=== PATIENT | male | born 1960 ===

== ENCOUNTER 2020-07-10 05:10 | Emergency (ER) | payer MEDICAID ==
[~2020-07-10] VITALS: Ht 175.3 cm; Wt 63.8 kg
--- NOTE | 2020-07-10 05:21 | NUR ---
PT C/O RIGHT KNEE PAIN. PT STATES HE HAS CHRONIC PAIN IN HIS KNEES AND ANKLES BUT THE PAIN IS BAD TODAY, 09/10. PT ALSO STATES HE HAS LOST HIS BALANCE WITH THE PAIN BUT DENIES ANY INJURIES. PT +ETOH AND STATES HE DRANK ALCOHOL TODAY, BUT NOT MUCH HE NORMALLY DOES. +CMS TO EXT. PT REFUSING TO WEAR [facility].
[2020-07-10] MEDS ORDERED: ACETAMINOPHEN 500 MG TABLET ONE (05:46)
--- NOTE | 2020-07-10 05:56 | NUR ---
PT REFUSING LABS AND MEDICATIONS. PT SAYS HE JUST WANTED THE DR TO CHECK HIS VITAL SIGNS AND HE WANTS TO GO.
[2020-07-10 05:57] VITALS: BP 144/71
[2020-07-10] MEDS ORDERED: ACETAMINOPHEN 500 MG TABLET PO ONE (06:00)
--- NOTE | 2020-07-10 06:05 | NUR ---
PT REC'VD DISCHARGE INSTRUCTIONS AND EDUCATION. PT HAD NO FURTHER QUESTIONS. PT PROVIDED TAXI VOUCHER. PT IN WHEELCHAIR TO ME AREA.
== END 2020-07-10 06:41 | disposition home or self-care (01) ==
LOC: ED 06:00
DX: M25.562 Pain in left knee (principal); M25.561 Pain in right knee; F10.20 Alcohol dependence, uncomplicated; Z72.9 Problem related to lifestyle, unspecified; F17.200 Nicotine dependence, unspecified, uncomplicated; Y90.0 Blood alcohol level of less than 20 mg/100 ml
CPT/HCPCS: 99283

== ENCOUNTER 2020-07-11 10:14 | Emergency (ER) | payer MEDICAID ==
[~2020-07-11] VITALS: Ht 175.3 cm; Wt 63.8 kg
[2020-07-11 10:17] VITALS: BP 130/58
--- NOTE | 2020-07-11 10:22 | NUR ---
THIS IS A 59 YO M BIB EMS FOR NECK PAIN R/T INJ X7 DAYS. PT WAS SEEN IN THIS ED YESERDAY AND WAS NON COMPLIANT W/ POC. PT REPORTS 7 DRINKS TODAY. PT TACHYCARDIC, OTHER VS WDL. RESP EVEN AND UNLABORED, NADN.
--- NOTE | 2020-07-11 10:45 | NUR ---
EMMA MCLEAN AT BEDSIDE.
--- NOTE | 2020-07-11 11:04 | NUR ---
PT VERBALLY AGGRESSIVE, STATING "FUCK YOU BITCH, PUT MY SHIRT ON? TAKE YOUR SHIRT OFF!" SECURITY CALLED TO ASSIST IN DC. WHILE PT WAS CHANGING, LIT CIGGARETTE AND STARTED SMOKING IN ROOM. PT CONTINUED CURSING AT THIS RN. SECURITY AT BEDSIDE.
--- NOTE | 2020-07-11 11:08 | NUR ---
PT AMBULATORY W/ A STEADY GAIT, SLAMMING DOOR BEHIND HIM. ESCORTED OUT BY SECURITY. RESP EVEN AND UNLABORED,
== END 2020-07-11 11:10 | disposition home or self-care (01) ==
LOC: ED 11:05
DX: M54.2 Cervicalgia (principal); R21 Rash and other nonspecific skin eruption; B86 Scabies; Z59.0 Homelessness
CPT/HCPCS: 99283

== ENCOUNTER 2020-07-13 16:01 | Emergency (ER) | payer MEDICAID ==
[~2020-07-13] VITALS: Ht 172.7 cm; Wt 70.0 kg
--- NOTE | 2020-07-13 16:30 | NUR ---
This pt was BIB [facility] as they are unable to take the pt directly to a mental health facility, where he was hoping to go as he has a hx of depession and has been out of his meds. Pt has no thougths of SI. Pt states "that's what they say" when asked about his ETOH and if he's going through withdrawls.
--- NOTE | 2020-07-13 16:42 | NUR ---
Pt to decon now.
[2020-07-13] MEDS ORDERED: PIPERONYL BUTOXIDE/PYRETHRINS 4OZ. SHAMPOO ONE (16:45)
[2020-07-13] MEDS ORDERED: PIPERONYL BUTOXIDE/PYRETHRINS 4OZ. SHAMPOO TP SCH (16:45)
[2020-07-13 17:33] LABS: BASOPHILS % (AUTO) 1 % (0-1); EOSINOPHILS % (AUTO) 4 % (1-7); LYMPHOCYTES % (AUTO) 17 % (22-44); MEAN CORPUSCULAR HEMOGLOBIN 32.7 pg (27.5-34.5); MEAN CORPUSCULAR HGB CONC 33.7 g/dL (33.2-36.2); MEAN PLATELET VOLUME 7.4 fL (7.4-10.4); MONOCYTES % (AUTO) 16 % (2-9); NEUTROPHILS % (AUTO) 63 % (42-75); PLATELET COUNT 152 x10^3/uL (130-400); RED BLOOD COUNT 3.72 x10^6/uL (4.38-5.82); RED CELL DISTRIBUTION WIDTH 14.4 % (9.4-14.8)
[2020-07-13 17:34] LABS: MD NO
[2020-07-13 17:35] LABS: ALBUMIN 3.2 g/dL (3.4-5.0); ANION GAP 8 mmol/L (5-15); CALCIUM 8.4 mg/dL (8.5-10.1); CHLORIDE 102 mmol/L (98-107); CREATININE 1.04 mg/dL (0.7-1.3)
--- NOTE | 2020-07-13 17:56 | NUR ---
Pt refused tib/fib xray, states "it's my neck that hurts."
--- NOTE | 2020-07-13 18:19 | NUR ---
US to bedside. Pt refusing imaging. This RN to bedside to assess situation. Pt out of bed, yelling at this RN. "You could've let my go through my sutff in the other room. You want me to leave, don't you? Could've fuckinf told you that. Why don't you just give me a bottle of my prescription and I'll just go." Pt provided with new clothes "why don't you get me something fucking warm?" Pt provided with sandwhich.
--- NOTE | 2020-07-13 18:34 | NUR ---
Pt ate half the stevenwhjuani. "Give this other half to your grandma because I bet she'd appreciate it but I don't." Pt threw nusrat across the room. Provided with bus pass and address [facility]. Security called to escort out. Pt refused to sign AMA form.
[2020-07-13 18:42] VITALS: BP 131/65
== END 2020-07-13 18:45 | disposition left against medical advice (07) ==
LOC: ED 18:30
DX: F10.220 Alcohol dependence with intoxication, uncomplicated (principal); B85.0 Pediculosis due to Pediculus humanus capitis; F17.210 Nicotine dependence, cigarettes, uncomplicated; Y90.0 Blood alcohol level of less than 20 mg/100 ml; Z59.0 Homelessness
CPT/HCPCS: 36415; 80048; 82040; 85025; 99283; 99406

== ENCOUNTER 2020-07-18 11:00 | Inpatient (IN) | payer MEDICAID ==
[~2020-07-18] VITALS: Ht 175.3 cm; Wt 81.1 kg
[2020-07-18] MEDS ORDERED: ACETAMINOPHEN 500 MG TABLET ONE (11:14)
--- NOTE | 2020-07-18 11:20 | NUR ---
PT BIBA. PER EMS PT HAS LEG/NECK/ BACK PAIN. PT DENIES ANY TRAUMA. PER EMS PT ALSO WAS SEEN AT [facility] TODAY FOR SAME. PT HAS EDEMA AND ERYTHEMA ON BILAT LOWER EXTREMITIES. PT IS A POOR HISTORIAN AND REPORTS NO MEDICAL HX. PT STATES HIS PAIN IS 8/10 TO HIS LEGS, BACK, AND NECK. PT WARM TO THE TOUCH, RECTAL TEMPERATURE 104.9F. PT IS A&OX3. PT RESTING IN [place], MONITORING IN PLACE, EKG DONE, PT MEDICATED PER BENJAMIN EDWARDS AT THIS TIME, DR. ALEXANDER AT BEDSIDE FOR EVAL, WCTM.
[2020-07-18] MEDS ORDERED: ACETAMINOPHEN 500 MG TABLET PO ONE (11:30)
[2020-07-18] MEDS ORDERED: SODIUM CHLORIDE FLUSH 10ML SYR IVF ONE (11:30)
[2020-07-18] MEDS ORDERED: SODIUM CHLORIDE 0.9% 1,000ML IVBOLUS ONE (11:30)
[2020-07-18 12:02] LABS: MEAN CORPUSCULAR HEMOGLOBIN 31.8 pg (27.5-34.5); MEAN CORPUSCULAR HGB CONC 33.2 g/dL (33.2-36.2); MEAN PLATELET VOLUME 7.9 fL (7.4-10.4); PLATELET COUNT 92 x10^3/uL (130-400); RED BLOOD COUNT 3.89 x10^6/uL (4.38-5.82); RED CELL DISTRIBUTION WIDTH 14.6 % (9.4-14.8)
[2020-07-18 12:08] LABS: INTERNATIONAL NORMALIZED RATIO 1.56 (0.93-1.1); PROTHROMBIN TIME 16.5 Seconds (9.6-11.5)
[2020-07-18 12:09] LABS: ALANINE AMINOTRANSFERASE 64 U/L (12-78); ALBUMIN 2.5 g/dL (3.4-5.0); ANION GAP 7 mmol/L (5-15); CALCIUM 7.8 mg/dL (8.5-10.1); CHLORIDE 103 mmol/L (98-107)
[2020-07-18 12:12] LABS: ALKALINE PHOSPHATASE 89 U/L (45-117); BILIRUBIN,TOTAL 1.6 mg/dL (0.2-1.0); CREATINE KINASE, TOTAL 179 U/L (39-308); CREATININE 1.19 mg/dL (0.7-1.3); TOTAL PROTEIN 6.5 g/dL (6.4-8.2)
[2020-07-18 12:24] LABS: MD YES
[2020-07-18 12:26] LABS: <PLATELET ESTIMATE> DECREASED; <PLT MORPHOLOGY> NORMAL PLT MORPH; BAND#(MANUAL) 1.98 x10^3/uL; BANDS%(MANUAL) 25 % (0-7); LYMPH#(MANUAL) 0.08 x10^3/uL (1-3.4); LYMPHS% (MANUAL) 1 % (22-44); MONOS#(MANUAL) 0.47 x10^3/uL (0.3-2.7); MONOS% (MANUAL) 6 % (2-9); SEG#(MANUAL) 5.37 x10^3/uL (1.8-6.8); SEGS% (MANUAL) 68 % (42-75)
[2020-07-18 12:27] LABS: POLYCHROMASIA 1+
[2020-07-18] MEDS ORDERED: CEFTRIAXONE 1,000 MG in DEXTROSE 5% 50 ML IVPB ONE (13:00)
[2020-07-18 13:02] LABS: MICROSCOPIC NOT IND
[2020-07-18 14:57] LABS: RAPID INFLUENZA A Negative (Negative); RAPID INFLUENZA B Negative (Negative)
--- NOTE | 2020-07-18 15:21 | NUR ---
task rn. us at bedside
[2020-07-18] MEDS ORDERED: ONDANSETRON 2MG/ML, 2ML IVPush PRN (16:00)
[2020-07-18] MEDS ORDERED: CHLORDIAZEPOXIDE 10 MG CAPSULE PO PRN (16:00)
[2020-07-18] MEDS ORDERED: ONDANSETRON ODT 4 MG PO PRN (16:00)
[2020-07-18] MEDS ORDERED: ENOXAPARIN 40 MG/0.4 ML SQ SCH (16:00)
[2020-07-18] MEDS ORDERED: CHLORDIAZEPOXIDE 25 MG CAPSULE PO PRN ×2 (16:00)
[2020-07-18] MEDS ORDERED: ENALAPRILAT 1.25 MG/ML, 2ML IVPush PRN (16:00)
[2020-07-18] MEDS ORDERED: LORazepam 2 MG/ML, 1ML IV PRN (16:00)
[2020-07-18 17:39] VITALS: BP 109/72
[2020-07-18 17:47] VITALS: BP 109/72
[2020-07-18] MEDS ORDERED: BUTALB/APAP/CAFFEINE 50MG/325MG/40MG PO PRN (18:00)
[2020-07-18] MEDS: D5%-0.45NACL+KCL 20MEQ 1,000 ML IV SCH (18:44)
[2020-07-18] MEDS: CHLORDIAZEPOXIDE 25 MG CAPSULE PO PRN (19:52)
[2020-07-18 20:48] VITALS: BP 99/57
[2020-07-18] MEDS: AMPICILLIN/SULBACTAM 3 GM in SODIUM CHLORIDE 0.9% 100 ML IV SCH (21:24)
[2020-07-18] MEDS: MELATONIN 5 MG TABLET PO SCH (23:00)
[2020-07-18] MEDS: ACETAMINOPHEN 325 MG TABLET PO PRN (23:56)
[2020-07-19] MEDS ORDERED: MAGNESIUM SULFATE PMX 2GM/50ML 50 ML IV ONE
[2020-07-19 00:04] VITALS: BP 99/58
[2020-07-19 02:59] VITALS: BP 94/58
[2020-07-19 03:18] LABS: BASOPHILS % (AUTO) 1 % (0-1); EOSINOPHILS % (AUTO) 0 % (1-7); LYMPHOCYTES % (AUTO) 6 % (22-44); MEAN CORPUSCULAR HEMOGLOBIN 31.8 pg (27.5-34.5); MEAN PLATELET VOLUME 7.9 fL (7.4-10.4); MONOCYTES % (AUTO) 5 % (2-9); NEUTROPHILS % (AUTO) 89 % (42-75); PLATELET COUNT 92 x10^3/uL (130-400); RED BLOOD COUNT 3.54 x10^6/uL (4.38-5.82)
[2020-07-19 03:19] LABS: MD NO
[2020-07-19 03:31] LABS: ALANINE AMINOTRANSFERASE 58 U/L (12-78); ANION GAP 7 mmol/L (5-15); CALCIUM 7.2 mg/dL (8.5-10.1); CHLORIDE 104 mmol/L (98-107); CREATININE 0.91 mg/dL (0.7-1.3)
[2020-07-19 03:33] LABS: ALKALINE PHOSPHATASE 70 U/L (45-117); BILIRUBIN,TOTAL 1.1 mg/dL (0.2-1.0); TOTAL PROTEIN 5.3 g/dL (6.4-8.2)
[2020-07-19] MEDS ORDERED: PROMETHAZINE 25 MG/ML, 1ML IM ONE (04:00)
[2020-07-19] MEDS: PANTOPRAZOLE 40 MG IV IVPush SCH ×2 (04:13→16:39)
[2020-07-19 04:21] VITALS: BP 95/57
[2020-07-19] MEDS: CHLORDIAZEPOXIDE 25 MG CAPSULE PO PRN ×2 (05:43→08:14)
[2020-07-19] MEDS: AMPICILLIN/SULBACTAM 3 GM in SODIUM CHLORIDE 0.9% 100 ML IV SCH ×3 (05:43→21:00)
[2020-07-19 06:53] VITALS: BP 90/53
[2020-07-19] MEDS ORDERED: CYANOCOBALAMIN 1,000 MCG/ML, 1ML IM ONE (09:00)
[2020-07-19] MEDS: CALCIUM CARBONATE 500 MG TAB.CHEW PO SCH ×2 (09:00→21:00)
[2020-07-19] MEDS ORDERED: POTASSIUM PHOSPHATE 44 MEQ in SODIUM CHLORIDE 0.9% 500 ML IV ONE (09:00)
[2020-07-19] MEDS: SENNA/DOCUSATE TABLET PO SCH (09:00)
[2020-07-19] MEDS: ZINC SULFATE 220 MG CAPSULE PO SCH (09:59)
[2020-07-19] MEDS: MULTIVITS,STRESS FORMULA 1 TABLET PO SCH (09:59)
[2020-07-19] MEDS: CHOLECALCIFEROL 5,000u TAB PO SCH (10:00)
[2020-07-19] MEDS: OXYcodone/APAP 5/325MG TABLET PO PRN ×2 (10:00→16:39)
[2020-07-19 11:53] VITALS: BP 99/60
[2020-07-19] MEDS ORDERED: OCTREOTIDE 50 MCG/ML, 1ML (0.05MG/ML) IVPush ONE ×2 (12:30→15:30)
[2020-07-19 12:49] LABS: MEAN CORPUSCULAR HEMOGLOBIN 32.3 pg (27.5-34.5); MEAN CORPUSCULAR HGB CONC 33.2 g/dL (33.2-36.2); MEAN PLATELET VOLUME 7.9 fL (7.4-10.4); PLATELET COUNT 93 x10^3/uL (130-400); RED BLOOD COUNT 3.53 x10^6/uL (4.38-5.82); RED CELL DISTRIBUTION WIDTH 14.6 % (9.4-14.8)
[2020-07-19 13:24] LABS: MD YES
[2020-07-19 13:26] LABS: LYMPH#(MANUAL) 0.35 x10^3/uL (1-3.4); LYMPHS% (MANUAL) 5 % (22-44); MONOS#(MANUAL) 0.14 x10^3/uL (0.3-2.7); MONOS% (MANUAL) 2 % (2-9)
[2020-07-19 13:28] LABS: <PLATELET ESTIMATE> DECREASED; <PLT MORPHOLOGY> NORMAL PLT MORPH; <RBC MORPHOLOGY> NORMAL; PMNS WITH VACUOLES 1+
[2020-07-19 13:29] LABS: BAND#(MANUAL) 0.98 x10^3/uL; BANDS%(MANUAL) 14 % (0-7); SEG#(MANUAL) 5.53 x10^3/uL (1.8-6.8); SEGS% (MANUAL) 79 % (42-75)
[2020-07-19] MEDS ORDERED: SODIUM CHLORIDE 0.9% 1,000ML IV ONE (14:00)
[2020-07-19] MEDS ORDERED: NICOTINE 14MG/24 HR PATCH.TD24 TD ONE (14:00)
[2020-07-19] MEDS ORDERED: OCTREOTIDE 100MCG/ML, 1ML (0.1MG/ML) IVPush ONE (15:30)
[2020-07-19] MEDS: OCTREOTIDE 500 MCG in SODIUM CHLORIDE 0.9% 99 ML IV PRN ×2 (15:38→23:53)
[2020-07-19] MEDS: D5%-0.45NACL+KCL 20MEQ 1,000 ML IV SCH (15:53)
[2020-07-19] MEDS: ASCORBIC ACID 500 MG TABLET PO SCH (16:39)
[2020-07-19 18:15] LABS: MEAN CORPUSCULAR HEMOGLOBIN 32.1 pg (27.5-34.5); MEAN CORPUSCULAR HGB CONC 32.8 g/dL (33.2-36.2); MEAN PLATELET VOLUME 8.1 fL (7.4-10.4); PLATELET COUNT 81 x10^3/uL (130-400); RED BLOOD COUNT 3.34 x10^6/uL (4.38-5.82)
[2020-07-19 18:16] LABS: MD YES
[2020-07-19 18:43] LABS: BAND#(MANUAL) 0.86 x10^3/uL; BANDS%(MANUAL) 13 % (0-7); LYMPH#(MANUAL) 0.53 x10^3/uL (1-3.4); LYMPHS% (MANUAL) 8 % (22-44); MONOS#(MANUAL) 0.26 x10^3/uL (0.3-2.7); MONOS% (MANUAL) 4 % (2-9); REACTIVE LYMPHS # (MANUAL) 0.07 x10^3/uL (0-0); REACTIVE LYMPHS % (MANUAL) 1 % (0-0); SEG#(MANUAL) 4.88 x10^3/uL (1.8-6.8); SEGS% (MANUAL) 74 % (42-75)
[2020-07-19 18:45] LABS: <PLATELET ESTIMATE> DECREASED; <PLT MORPHOLOGY> NORMAL PLT MORPH; ANISOCYTOSIS 1+; PMNS WITH VACUOLES 1+; POLYCHROMASIA 1+
[2020-07-19 19:19] VITALS: BP 92/55
[2020-07-19] MEDS: ACETAMINOPHEN 325 MG TABLET PO PRN (20:56)
[2020-07-19] MEDS: MELATONIN 5 MG TABLET PO SCH (20:58)
[2020-07-19 21:46] LABS: BASOPHILS % (AUTO) 1 % (0-1); EOSINOPHILS % (AUTO) 1 % (1-7); LYMPHOCYTES % (AUTO) 7 % (22-44); MEAN CORPUSCULAR HEMOGLOBIN 32.2 pg (27.5-34.5); MEAN PLATELET VOLUME 7.9 fL (7.4-10.4); MONOCYTES % (AUTO) 7 % (2-9); NEUTROPHILS % (AUTO) 85 % (42-75); PLATELET COUNT 93 x10^3/uL (130-400); RED BLOOD COUNT 3.23 x10^6/uL (4.38-5.82); RED CELL DISTRIBUTION WIDTH 14.8 % (9.4-14.8)
[2020-07-19 21:47] LABS: MD NO
[2020-07-19] MEDS: GABAPENTIN 300 MG CAPSULE PO PRN (23:28)
[2020-07-20 00:02] VITALS: BP 98/53
[2020-07-20 04:28] LABS: MEAN CORPUSCULAR HEMOGLOBIN 32.1 pg (27.5-34.5); MEAN CORPUSCULAR HGB CONC 33.4 g/dL (33.2-36.2); PLATELET COUNT 89 x10^3/uL (130-400); RED BLOOD COUNT 3.31 x10^6/uL (4.38-5.82); RED CELL DISTRIBUTION WIDTH 14.9 % (9.4-14.8)
[2020-07-20 04:42] LABS: ALBUMIN 1.7 g/dL (3.4-5.0); ANION GAP 4 mmol/L (5-15); CHLORIDE 108 mmol/L (98-107)
[2020-07-20 04:43] LABS: CREATININE 0.85 mg/dL (0.7-1.3)
[2020-07-20] MEDS: PANTOPRAZOLE 40 MG IV IVPush SCH (04:49)
[2020-07-20] MEDS: AMPICILLIN/SULBACTAM 3 GM in SODIUM CHLORIDE 0.9% 100 ML IV SCH ×3 (04:52→21:06)
[2020-07-20] MEDS: OXYcodone/APAP 5/325MG TABLET PO PRN ×2 (05:04→16:14)
[2020-07-20 05:05] VITALS: BP 95/59
[2020-07-20 05:47] LABS: MD YES
[2020-07-20 05:49] LABS: <PLATELET ESTIMATE> DECREASED; <PLT MORPHOLOGY> NORMAL PLT MORPH; ANISOCYTOSIS 1+; BAND#(MANUAL) 0.18 x10^3/uL; BANDS%(MANUAL) 3 % (0-7); EOS#(MANUAL) 0.06 x10^3/uL (0.0-0.4); EOS% (MANUAL) 1 % (1-7); LYMPH#(MANUAL) 0.06 x10^3/uL (1-3.4); LYMPHS% (MANUAL) 1 % (22-44); METAMYELOCYTES# (MANUAL) 0.06 x10^3/uL (0-0); METAMYELOCYTES% (MANUAL) 1 % (0-1); MONOS#(MANUAL) 0.06 x10^3/uL (0.3-2.7); MONOS% (MANUAL) 1 % (2-9); PMNS WITH VACUOLES 1+; SEG#(MANUAL) 5.67 x10^3/uL (1.8-6.8); SEGS% (MANUAL) 93 % (42-75)
[2020-07-20 05:50] LABS: POLYCHROMASIA 1+
[2020-07-20] MEDS ORDERED: CHLORHEXIDINE 15 ML UDC ONE (08:17)
[2020-07-20] MEDS ORDERED: CHLORHEXIDINE 15 ML UDC PO ONE (08:30)
[2020-07-20] MEDS: SENNA/DOCUSATE TABLET PO SCH (09:00)
[2020-07-20] MEDS ORDERED: MIDAZOLAM 1 MG/ML, 2ML ONE (09:16)
[2020-07-20] MEDS ORDERED: PROPOFOL 10 MG/ML, 50ML ONE (09:17)
[2020-07-20] MEDS ORDERED: METOPROLOL 1 MG/ML, 5ML IV PRN (09:30)
[2020-07-20] MEDS ORDERED: EPHEDRINE 50 MG/ML, 1ML IVPush PRN (09:30)
[2020-07-20] MEDS ORDERED: PROMETHAZINE 25 MG/ML, 1ML IVPush PRN (09:30)
[2020-07-20] MEDS ORDERED: DIAZEPAM 5 MG/ML, 2ML IVPush PRN (09:30)
[2020-07-20] MEDS ORDERED: LABETALOL 5MG/ML, 20ML IV PRN (09:30)
[2020-07-20] MEDS ORDERED: ONDANSETRON 2MG/ML, 2ML IVPush PRN (09:30)
[2020-07-20] MEDS ORDERED: hydrALAzine 20 MG/ML, 1ML IV PRN (09:30)
[2020-07-20] MEDS ORDERED: LORazepam 2 MG/ML, 1ML IVPush PRN (09:30)
[2020-07-20] MEDS ORDERED: DIPHENHYDRAMINE 50 MG/ML, 1ML IVPush PRN (09:30)
[2020-07-20] MEDS ORDERED: METOCLOPRAMIDE 5 MG/ML, 2ML IVPush PRN (09:30)
[2020-07-20] MEDS ORDERED: HALOPERIDOL 5 MG/ML IV PRN (09:30)
[2020-07-20] MEDS ORDERED: FENTANYL PF 100 MCG/2ML IV PRN (09:30)
[2020-07-20] MEDS ORDERED: ACETAMINOPHEN 325 MG TABLET PO PRN (09:30)
[2020-07-20] MEDS ORDERED: FENTANYL PF 100 MCG/2ML ONE (09:56)
[2020-07-20] MEDS ORDERED: LABETALOL 5MG/ML, 20ML ONE (09:56)
[2020-07-20] MEDS ORDERED: POTASSIUM PHOSPHATE 44 MEQ in SODIUM CHLORIDE 0.9% 500 ML IV ONE (10:00)
[2020-07-20] MEDS: ZINC SULFATE 220 MG CAPSULE PO SCH (10:37)
[2020-07-20] MEDS: CALCIUM CARBONATE 500 MG TAB.CHEW PO SCH ×2 (10:37→21:07)
[2020-07-20] MEDS: ASCORBIC ACID 500 MG TABLET PO SCH ×2 (10:37→16:14)
[2020-07-20] MEDS: CHOLECALCIFEROL 5,000u TAB PO SCH (10:38)
[2020-07-20] MEDS: MULTIVITS,STRESS FORMULA 1 TABLET PO SCH (10:51)
[2020-07-20 12:17] LABS: BASOPHILS % (AUTO) 0 % (0-1); EOSINOPHILS % (AUTO) 1 % (1-7); LYMPHOCYTES % (AUTO) 6 % (22-44); MEAN CORPUSCULAR HEMOGLOBIN 32.1 pg (27.5-34.5); MEAN PLATELET VOLUME 8.2 fL (7.4-10.4); MONOCYTES % (AUTO) 7 % (2-9); NEUTROPHILS % (AUTO) 86 % (42-75); PLATELET COUNT 82 x10^3/uL (130-400); RED BLOOD COUNT 3.47 x10^6/uL (4.38-5.82); RED CELL DISTRIBUTION WIDTH 15.1 % (9.4-14.8)
[2020-07-20 12:18] LABS: MD NO
[2020-07-20 12:32] VITALS: BP 97/57
--- NOTE | 2020-07-20 15:48 | NUR ---
Posted activity sheet and informed staff and patient Addendum: 07/20/20 at 1548 by Chris Ag PT Amended: Links added.
[2020-07-20] MEDS: OMEPRAZOLE 20 MG CAPSULE.DR PO SCH (16:13)
[2020-07-20 18:13] LABS: BASOPHILS % (AUTO) 0 % (0-1); EOSINOPHILS % (AUTO) 1 % (1-7); LYMPHOCYTES % (AUTO) 9 % (22-44); MEAN CORPUSCULAR HEMOGLOBIN 32.2 pg (27.5-34.5); MEAN CORPUSCULAR HGB CONC 32.8 g/dL (33.2-36.2); MEAN PLATELET VOLUME 8.4 fL (7.4-10.4); MONOCYTES % (AUTO) 10 % (2-9); NEUTROPHILS % (AUTO) 80 % (42-75); PLATELET COUNT 86 x10^3/uL (130-400); RED BLOOD COUNT 3.61 x10^6/uL (4.38-5.82); RED CELL DISTRIBUTION WIDTH 15.3 % (9.4-14.8)
[2020-07-20 18:14] LABS: MD NO
[2020-07-20 19:49] VITALS: BP 98/63
[2020-07-20] MEDS: MELATONIN 5 MG TABLET PO SCH (21:07)
[2020-07-20 23:50] LABS: BASOPHILS % (AUTO) 0 % (0-1); EOSINOPHILS % (AUTO) 2 % (1-7); LYMPHOCYTES % (AUTO) 9 % (22-44); MEAN CORPUSCULAR HEMOGLOBIN 32.3 pg (27.5-34.5); MEAN CORPUSCULAR HGB CONC 32.9 g/dL (33.2-36.2); MEAN PLATELET VOLUME 8.3 fL (7.4-10.4); MONOCYTES % (AUTO) 9 % (2-9); NEUTROPHILS % (AUTO) 80 % (42-75); PLATELET COUNT 86 x10^3/uL (130-400); RED BLOOD COUNT 3.38 x10^6/uL (4.38-5.82); RED CELL DISTRIBUTION WIDTH 14.7 % (9.4-14.8)
[2020-07-20 23:59] LABS: MD NO
[2020-07-21 01:48] VITALS: BP 100/60
[2020-07-21] MEDS: GABAPENTIN 300 MG CAPSULE PO PRN (01:53)
[2020-07-21] MEDS: OXYcodone/APAP 5/325MG TABLET PO PRN ×2 (01:53→09:25)
[2020-07-21 04:41] LABS: BASOPHILS % (AUTO) 1 % (0-1); EOSINOPHILS % (AUTO) 2 % (1-7); LYMPHOCYTES % (AUTO) 9 % (22-44); MEAN CORPUSCULAR HEMOGLOBIN 32.2 pg (27.5-34.5); MEAN CORPUSCULAR HGB CONC 32.9 g/dL (33.2-36.2); MEAN PLATELET VOLUME 8.1 fL (7.4-10.4); MONOCYTES % (AUTO) 9 % (2-9); NEUTROPHILS % (AUTO) 80 % (42-75); PLATELET COUNT 80 x10^3/uL (130-400); RED BLOOD COUNT 3.25 x10^6/uL (4.38-5.82)
[2020-07-21 04:42] LABS: MD NO
[2020-07-21 04:53] LABS: ALBUMIN 1.6 g/dL (3.4-5.0); ANION GAP 6 mmol/L (5-15); CALCIUM 6.9 mg/dL (8.5-10.1); CHLORIDE 109 mmol/L (98-107)
[2020-07-21] MEDS: AMPICILLIN/SULBACTAM 3 GM in SODIUM CHLORIDE 0.9% 100 ML IV SCH ×3 (05:38→20:58)
[2020-07-21] MEDS: OMEPRAZOLE 20 MG CAPSULE.DR PO SCH ×2 (05:56→16:55)
[2020-07-21 07:55] VITALS: BP 103/59
[2020-07-21] MEDS: ASCORBIC ACID 500 MG TABLET PO SCH ×2 (08:22→16:55)
[2020-07-21] MEDS: CALCIUM CARBONATE 500 MG TAB.CHEW PO SCH ×2 (08:22→20:57)
[2020-07-21] MEDS: ZINC SULFATE 220 MG CAPSULE PO SCH (08:22)
[2020-07-21] MEDS: MULTIVITS,STRESS FORMULA 1 TABLET PO SCH (08:22)
[2020-07-21] MEDS: SENNA/DOCUSATE TABLET PO SCH (08:23)
[2020-07-21] MEDS: CHOLECALCIFEROL 5,000u TAB PO SCH (08:23)
[2020-07-21] MEDS ORDERED: CALCIUM GLUCONATE 4.6 MEQ/10 ML IVPush ONE (08:30)
[2020-07-21] MEDS ORDERED: SODIUM PHOSPHATE 20 MMOL in SODIUM CHLORIDE 0.9% 500 ML IV ONE (08:30)
[2020-07-21] MEDS ORDERED: CALCIUM GLUCONATE 4.6 MEQ in SODIUM CHLORIDE 0.9% 100 ML IV ONE (09:30)
[2020-07-21 12:07] VITALS: BP 110/65
[2020-07-21 12:46] LABS: MEAN CORPUSCULAR HEMOGLOBIN 32.2 pg (27.5-34.5); MEAN CORPUSCULAR HGB CONC 33.3 g/dL (33.2-36.2); MEAN PLATELET VOLUME 8.6 fL (7.4-10.4); PLATELET COUNT 96 x10^3/uL (130-400); RED BLOOD COUNT 3.71 x10^6/uL (4.38-5.82); RED CELL DISTRIBUTION WIDTH 14.9 % (9.4-14.8)
[2020-07-21] MEDS: ALBUMIN HUMAN 25% 100 ML IV SCH ×2 (13:54→20:15)
[2020-07-21 14:10] LABS: MD YES
[2020-07-21 14:19] LABS: BAND#(MANUAL) 0.37 x10^3/uL; BANDS%(MANUAL) 6 % (0-7); EOS#(MANUAL) 0.12 x10^3/uL (0.0-0.4); EOS% (MANUAL) 2 % (1-7); LYMPH#(MANUAL) 0.56 x10^3/uL (1-3.4); LYMPHS% (MANUAL) 9 % (22-44); MONOS#(MANUAL) 0.56 x10^3/uL (0.3-2.7); MONOS% (MANUAL) 9 % (2-9); SEG#(MANUAL) 4.59 x10^3/uL (1.8-6.8); SEGS% (MANUAL) 74 % (42-75)
[2020-07-21 14:23] LABS: ANISOCYTOSIS 1+; PMNS WITH VACUOLES 1+
[2020-07-21 14:24] LABS: <PLATELET ESTIMATE> DECREASED; <PLT MORPHOLOGY> NORMAL PLT MORPH; TOXIC GRAN 1+
[2020-07-21] MEDS ORDERED: FUROSEMIDE 20 MG/2 ML IV ONE (15:00)
[2020-07-21 16:52] VITALS: BP 103/69
[2020-07-21 18:06] LABS: BASOPHILS % (AUTO) 0 % (0-1); EOSINOPHILS % (AUTO) 1 % (1-7); LYMPHOCYTES % (AUTO) 10 % (22-44); MEAN CORPUSCULAR HEMOGLOBIN 32.1 pg (27.5-34.5); MEAN CORPUSCULAR HGB CONC 33.1 g/dL (33.2-36.2); MEAN PLATELET VOLUME 8.4 fL (7.4-10.4); MONOCYTES % (AUTO) 10 % (2-9); NEUTROPHILS % (AUTO) 78 % (42-75); PLATELET COUNT 76 x10^3/uL (130-400); RED BLOOD COUNT 3.47 x10^6/uL (4.38-5.82); RED CELL DISTRIBUTION WIDTH 15.1 % (9.4-14.8)
[2020-07-21 18:36] LABS: MD NO
[2020-07-21 19:03] VITALS: BP 100/60
[2020-07-21] MEDS: MELATONIN 5 MG TABLET PO SCH (20:58)
[2020-07-21 23:45] LABS: BASOPHILS % (AUTO) 0 % (0-1); EOSINOPHILS % (AUTO) 1 % (1-7); LYMPHOCYTES % (AUTO) 8 % (22-44); MEAN CORPUSCULAR HEMOGLOBIN 32.2 pg (27.5-34.5); MEAN CORPUSCULAR HGB CONC 33.3 g/dL (33.2-36.2); MEAN PLATELET VOLUME 8.5 fL (7.4-10.4); MONOCYTES % (AUTO) 11 % (2-9); NEUTROPHILS % (AUTO) 81 % (42-75); PLATELET COUNT 75 x10^3/uL (130-400); RED BLOOD COUNT 3.18 x10^6/uL (4.38-5.82); RED CELL DISTRIBUTION WIDTH 14.9 % (9.4-14.8)
[2020-07-22 00:03] LABS: MD NO
[2020-07-22 01:09] VITALS: BP 97/59
[2020-07-22] MEDS: ALBUMIN HUMAN 25% 100 ML IV SCH ×2 (01:58→08:06)
[2020-07-22] MEDS: AMPICILLIN/SULBACTAM 3 GM in SODIUM CHLORIDE 0.9% 100 ML IV SCH ×2 (04:38→13:07)
[2020-07-22] MEDS: OMEPRAZOLE 20 MG CAPSULE.DR PO SCH ×2 (05:20→16:37)
[2020-07-22] MEDS: OXYcodone/APAP 5/325MG TABLET PO PRN ×3 (05:21→21:18)
[2020-07-22 05:42] LABS: MEAN CORPUSCULAR HEMOGLOBIN 32.3 pg (27.5-34.5); MEAN CORPUSCULAR HGB CONC 33.4 g/dL (33.2-36.2); MEAN PLATELET VOLUME 9.2 fL (7.4-10.4); PLATELET COUNT 78 x10^3/uL (130-400); RED BLOOD COUNT 3.38 x10^6/uL (4.38-5.82); RED CELL DISTRIBUTION WIDTH 15.1 % (9.4-14.8)
[2020-07-22 05:54] LABS: CHLORIDE 108 mmol/L (98-107)
[2020-07-22 06:08] LABS: ANION GAP 9 mmol/L (5-15); CALCIUM 7.5 mg/dL (8.5-10.1); CREATININE 0.83 mg/dL (0.7-1.3); MD YES
[2020-07-22 06:10] LABS: <PLATELET ESTIMATE> DECREASED; <PLT MORPHOLOGY> NORMAL PLT MORPH; ANISOCYTOSIS 1+; EOS#(MANUAL) 0.05 x10^3/uL (0.0-0.4); EOS% (MANUAL) 1 % (1-7); LYMPH#(MANUAL) 0.72 x10^3/uL (1-3.4); LYMPHS% (MANUAL) 15 % (22-44); MONOS#(MANUAL) 0.38 x10^3/uL (0.3-2.7); MONOS% (MANUAL) 8 % (2-9); SEG#(MANUAL) 3.65 x10^3/uL (1.8-6.8); SEGS% (MANUAL) 76 % (42-75)
[2020-07-22 07:12] VITALS: BP 96/60
[2020-07-22] MEDS ORDERED: MAGNESIUM SULFATE PMX 4GM/100M 100 ML IVPB ONE (08:00)
[2020-07-22] MEDS: CHOLECALCIFEROL 5,000u TAB PO SCH (08:09)
[2020-07-22] MEDS: ZINC SULFATE 220 MG CAPSULE PO SCH (08:09)
[2020-07-22] MEDS: MULTIVITS,STRESS FORMULA 1 TABLET PO SCH (08:09)
[2020-07-22] MEDS: ASCORBIC ACID 500 MG TABLET PO SCH (08:09)
[2020-07-22] MEDS: CALCIUM CARBONATE 500 MG TAB.CHEW PO SCH ×2 (08:09→21:17)
[2020-07-22] MEDS: GABAPENTIN 300 MG CAPSULE PO PRN ×2 (08:15→21:18)
[2020-07-22] MEDS: ACETAMINOPHEN 325 MG TABLET PO PRN (08:15)
[2020-07-22] MEDS: SENNA/DOCUSATE TABLET PO SCH (08:18)
[2020-07-22 11:43] LABS: BASOPHILS % (AUTO) 1 % (0-1); EOSINOPHILS % (AUTO) 1 % (1-7); LYMPHOCYTES % (AUTO) 11 % (22-44); MEAN CORPUSCULAR HEMOGLOBIN 32.1 pg (27.5-34.5); MEAN CORPUSCULAR HGB CONC 33.4 g/dL (33.2-36.2); MEAN PLATELET VOLUME 8.4 fL (7.4-10.4); MONOCYTES % (AUTO) 12 % (2-9); NEUTROPHILS % (AUTO) 75 % (42-75); PLATELET COUNT 90 x10^3/uL (130-400); RED BLOOD COUNT 3.31 x10^6/uL (4.38-5.82); RED CELL DISTRIBUTION WIDTH 15.3 % (9.4-14.8)
[2020-07-22 11:44] LABS: MD NO
[2020-07-22 13:28] VITALS: BP 110/68
[2020-07-22] MEDS: AMOXICILLIN/CLAV 875-125MG TABLET PO SCH ×2 (14:25→21:17)
[2020-07-22] MEDS ORDERED: OXYcodone/APAP 5/325MG TABLET PO ONE (16:30)
[2020-07-22] MEDS: SUCRALFATE 1 GM TABLET PO SCH ×2 (16:37→21:17)
[2020-07-22 17:44] LABS: BASOPHILS % (AUTO) 1 % (0-1); EOSINOPHILS % (AUTO) 1 % (1-7); LYMPHOCYTES % (AUTO) 12 % (22-44); MD NO; MEAN CORPUSCULAR HEMOGLOBIN 31.8 pg (27.5-34.5); MEAN CORPUSCULAR HGB CONC 32.7 g/dL (33.2-36.2); MEAN PLATELET VOLUME 8.5 fL (7.4-10.4); MONOCYTES % (AUTO) 12 % (2-9); NEUTROPHILS % (AUTO) 74 % (42-75); PLATELET COUNT 98 x10^3/uL (130-400); RED BLOOD COUNT 3.61 x10^6/uL (4.38-5.82); RED CELL DISTRIBUTION WIDTH 15.1 % (9.4-14.8)
[2020-07-22 20:19] VITALS: BP 104/63
[2020-07-22 23:45] LABS: BASOPHILS % (AUTO) 0 % (0-1); EOSINOPHILS % (AUTO) 2 % (1-7); LYMPHOCYTES % (AUTO) 10 % (22-44); MD NO; MEAN CORPUSCULAR HEMOGLOBIN 31.7 pg (27.5-34.5); MEAN CORPUSCULAR HGB CONC 33.1 g/dL (33.2-36.2); MEAN PLATELET VOLUME 8.7 fL (7.4-10.4); MONOCYTES % (AUTO) 12 % (2-9); NEUTROPHILS % (AUTO) 76 % (42-75); PLATELET COUNT 101 x10^3/uL (130-400); RED BLOOD COUNT 3.32 x10^6/uL (4.38-5.82); RED CELL DISTRIBUTION WIDTH 15.1 % (9.4-14.8)
[2020-07-23 01:33] VITALS: BP 100/63
[2020-07-23] MEDS: OMEPRAZOLE 20 MG CAPSULE.DR PO SCH ×2 (06:09→18:08)
[2020-07-23 07:06] VITALS: BP 109/63
[2020-07-23] MEDS: SUCRALFATE 1 GM TABLET PO SCH ×4 (11:00→21:29)
[2020-07-23] MEDS: CALCIUM CARBONATE 500 MG TAB.CHEW PO SCH ×2 (11:26→21:29)
[2020-07-23] MEDS: AMOXICILLIN/CLAV 875-125MG TABLET PO SCH ×2 (11:27→21:29)
[2020-07-23] MEDS: SENNA/DOCUSATE TABLET PO SCH ×2 (11:27→11:37)
[2020-07-23] MEDS: MULTIVITS,STRESS FORMULA 1 TABLET PO SCH (11:27)
[2020-07-23] MEDS: OXYcodone/APAP 5/325MG TABLET PO PRN ×2 (11:28→21:29)
[2020-07-23 12:18] VITALS: BP 104/68
[2020-07-23 18:51] VITALS: BP 106/67
[2020-07-23] MEDS: GABAPENTIN 300 MG CAPSULE PO PRN (21:29)
[2020-07-24] MEDS: BACLOFEN 10 MG TABLET PO PRN ×3 (00:22→21:33)
[2020-07-24 00:42] VITALS: BP 110/70
[2020-07-24] MEDS: OMEPRAZOLE 20 MG CAPSULE.DR PO SCH ×2 (05:54→16:13)
[2020-07-24] MEDS: OXYcodone/APAP 5/325MG TABLET PO PRN ×3 (05:54→18:33)
[2020-07-24 07:59] VITALS: BP 108/68
[2020-07-24] MEDS: SUCRALFATE 1 GM TABLET PO SCH ×4 (09:25→21:33)
[2020-07-24] MEDS: MULTIVITS,STRESS FORMULA 1 TABLET PO SCH (09:25)
[2020-07-24] MEDS: CALCIUM CARBONATE 500 MG TAB.CHEW PO SCH ×2 (09:25→21:33)
[2020-07-24] MEDS: AMOXICILLIN/CLAV 875-125MG TABLET PO SCH ×2 (09:25→21:33)
[2020-07-24] MEDS: GABAPENTIN 300 MG CAPSULE PO PRN ×2 (09:42→21:33)
[2020-07-24] MEDS: SENNA/DOCUSATE TABLET PO SCH (09:42)
[2020-07-24 14:02] VITALS: BP 115/63
[2020-07-24 19:12] VITALS: BP 131/70
[2020-07-25 02:48] VITALS: BP 118/63
[2020-07-25 05:52] LABS: CHLORIDE 106 mmol/L (98-107)
[2020-07-25] MEDS: OMEPRAZOLE 20 MG CAPSULE.DR PO SCH ×2 (05:54→15:34)
[2020-07-25 05:56] LABS: ANION GAP 5 mmol/L (5-15); CREATININE 0.53 mg/dL (0.7-1.3); HDL CHOLESTEROL (DIRECT) 7 mg/dL (40-60); TRIGLYCERIDES 72 mg/dL (50-200); VLDL CHOLESTEROL 14 mg/dL (0-25)
[2020-07-25 06:04] LABS: CHOL/HDL RATIO 7.1; CHOLESTEROL, TOTAL < 50 mg/dL (140-239); HDL CHOL % 0 % (26-37); LDL CHOLESTEROL,CALCULATED 29 mg/dL (54-169); LDL/HDL RATIO 4.1 (0.5-3.0)
[2020-07-25 06:26] VITALS: BP 118/71
[2020-07-25] MEDS: OXYcodone/APAP 5/325MG TABLET PO PRN ×3 (06:30→19:55)
[2020-07-25] MEDS: SUCRALFATE 1 GM TABLET PO SCH ×4 (06:31→20:57)
[2020-07-25] MEDS: SENNA/DOCUSATE TABLET PO SCH (09:00)
[2020-07-25] MEDS: CALCIUM CARBONATE 500 MG TAB.CHEW PO SCH ×2 (09:10→20:56)
[2020-07-25] MEDS: MULTIVITS,STRESS FORMULA 1 TABLET PO SCH (09:10)
[2020-07-25] MEDS: AMOXICILLIN/CLAV 875-125MG TABLET PO SCH ×2 (09:10→20:57)
[2020-07-25] MEDS: GABAPENTIN 300 MG CAPSULE PO SCH ×2 (15:35→19:55)
[2020-07-25 16:05] VITALS: BP 119/68
[2020-07-25 18:33] VITALS: BP 137/76
[2020-07-26 00:43] VITALS: BP 120/72
[2020-07-26] MEDS: SUCRALFATE 1 GM TABLET PO SCH ×5 (06:07→20:07)
[2020-07-26] MEDS: OMEPRAZOLE 20 MG CAPSULE.DR PO SCH ×3 (06:07→16:11)
[2020-07-26 07:23] VITALS: BP_SYST 131; BP_SYST 161; BP_DIAS 68; BP_DIAS 77
[2020-07-26] MEDS: MULTIVITS,STRESS FORMULA 1 TABLET PO SCH (08:00)
[2020-07-26] MEDS: AMOXICILLIN/CLAV 875-125MG TABLET PO SCH ×2 (08:00→20:07)
[2020-07-26] MEDS: GABAPENTIN 300 MG CAPSULE PO SCH ×4 (08:00→20:07)
[2020-07-26] MEDS: CALCIUM CARBONATE 500 MG TAB.CHEW PO SCH ×2 (08:01→20:31)
[2020-07-26] MEDS: SENNA/DOCUSATE TABLET PO SCH (08:04)
[2020-07-26] MEDS: OXYcodone/APAP 5/325MG TABLET PO PRN ×2 (10:41→20:07)
[2020-07-26 15:25] VITALS: BP 119/73
[2020-07-26 19:59] VITALS: BP 147/76
[2020-07-27 01:19] VITALS: BP 125/70
[2020-07-27] MEDS: SUCRALFATE 1 GM TABLET PO SCH (05:53)
[2020-07-27] MEDS: OMEPRAZOLE 20 MG CAPSULE.DR PO SCH (05:53)
[2020-07-27 07:22] VITALS: BP 120/56
[2020-07-27] MEDS: GABAPENTIN 300 MG CAPSULE PO SCH (08:32)
[2020-07-27] MEDS: MULTIVITS,STRESS FORMULA 1 TABLET PO SCH (08:32)
[2020-07-27] MEDS: SENNA/DOCUSATE TABLET PO SCH (08:32)
[2020-07-27] MEDS: AMOXICILLIN/CLAV 875-125MG TABLET PO SCH (08:32)
[2020-07-27] MEDS: CALCIUM CARBONATE 500 MG TAB.CHEW PO SCH (08:32)
[2020-07-27] MEDS: OXYcodone/APAP 5/325MG TABLET PO PRN (08:38)
[2020-07-27] MEDS ORDERED: AMOX1TAB12 PO (10:04)
[2020-07-27] MEDS ORDERED: SUCR1TAB33 PO (10:04)
[2020-07-27] MEDS ORDERED: OMEP-110 PO (10:04)
[2020-07-27 12:32] VITALS: BP 92/53
== END 2020-07-27 12:35 | disposition home or self-care (01) | DRG 720 ==
LOC: ED 12:48 → EDIP 14:46 → 4WST 17:35 → DCLOUNGE 07-27 12:24
PROVIDERS: ADMIT Emergency Medicine; ATTEND Hospitalist
PROC: 0T9B70Z Drainage of Bladder with Drainage Device, Via Natural or Artificial Opening (ICD-10-PCS; principal; 2020-07-18)
PROC: 0DJ08ZZ Inspection of Upper Intestinal Tract, Via Natural or Artificial Opening Endoscopic (ICD-10-PCS; 2020-07-20)
DX: A41.9 Sepsis, unspecified organism (principal); E83.42 Hypomagnesemia; L03.115 Cellulitis of right lower limb; Z20.822 Contact with and (suspected) exposure to COVID-19; R65.20 Severe sepsis without septic shock; Z59.0 Homelessness; Z63.8 Other specified problems related to primary support group; K20.91 Esophagitis, unspecified with bleeding; I35.0 Nonrheumatic aortic (valve) stenosis; G89.29 Other chronic pain; F17.210 Nicotine dependence, cigarettes, uncomplicated; E87.6 Hypokalemia; D64.9 Anemia, unspecified; E83.51 Hypocalcemia; F10.139 Alcohol abuse with withdrawal, unspecified; Y90.9 Presence of alcohol in blood, level not specified; F43.10 Post-traumatic stress disorder, unspecified; I87.8 Other specified disorders of veins
CPT/HCPCS: 36415; 71045; 80048; 80053; 80061; 80069; 81003; 82550; 83605; 83690; 83735; 83880; 84100; 84145; 85025; 85610; 87040; 87400; 93005; 93306; 93356; 93922; 93970; 96365; 96366; 96375; G0378; J0295; J0610; J0696; J1650; J2250; J2354; J2550; J2704; J3010; P9047; U0005; C9113; J1940; J3420; J3475; J3480; J7030; J7040; U0003

== ENCOUNTER 2020-07-28 22:21 | Emergency (ER) | payer MEDICAID ==
[~2020-07-28] VITALS: Ht 175.3 cm; Wt 65.5 kg
[~2020-07-28 22:21] MED LIST: AMOX1TAB12 PO; OMEP-110 PO; SUCR1TAB33 PO
[2020-07-28 23:11] LABS: BASOPHILS % (AUTO) 1 % (0-1); EOSINOPHILS % (AUTO) 0 % (1-7); LYMPHOCYTES % (AUTO) 14 % (22-44); MEAN CORPUSCULAR HEMOGLOBIN 31.8 pg (27.5-34.5); MEAN CORPUSCULAR HGB CONC 33.4 g/dL (33.2-36.2); MEAN PLATELET VOLUME 7.9 fL (7.4-10.4); MONOCYTES % (AUTO) 17 % (2-9); NEUTROPHILS % (AUTO) 69 % (42-75); PLATELET COUNT 281 x10^3/uL (130-400); RED BLOOD COUNT 3.13 x10^6/uL (4.38-5.82); RED CELL DISTRIBUTION WIDTH 16.7 % (9.4-14.8)
[2020-07-28 23:12] LABS: MD NO
[2020-07-28 23:23] LABS: ALANINE AMINOTRANSFERASE 44 U/L (12-78); ALBUMIN 2.3 g/dL (3.4-5.0); ANION GAP 10 mmol/L (5-15); CALCIUM 8.3 mg/dL (8.5-10.1); CHLORIDE 106 mmol/L (98-107); CREATININE 0.76 mg/dL (0.7-1.3)
[2020-07-28 23:25] LABS: ALKALINE PHOSPHATASE 167 U/L (45-117); BILIRUBIN,TOTAL 2.1 mg/dL (0.2-1.0); TOTAL PROTEIN 7.6 g/dL (6.4-8.2)
[2020-07-28 23:51] VITALS: BP 105/53
--- NOTE | 2020-07-28 23:51 | NUR ---
PT SLEEPING, PT PUT ON 2 LPM NASAL CANULA OXYGEN WHILE ASLEEP TO HELP MAINTAIN OXYGEN SATURATION ABOVE 92%, NAD
--- NOTE | 2020-07-29 00:10 | NUR ---
pt assessed by
--- NOTE | 2020-07-29 00:54 | NUR ---
pt sleeping, all vitals within normal, NAD
--- NOTE | 2020-07-29 01:33 | NUR ---
WITH REASSESSMENT-ROAD TEST FAILED-UNABLE TO STAND. ERP/CHARGE AWARE
--- NOTE | 2020-07-29 01:49 | NUR ---
THIS RN WENT INTO ROOM TO HELP PT GET DRESSED FOR DISCHARGE AND PT STATED, "YOURE JUST A DOG FACED NIGGER, AND I THINK YOU KNOW THAT." THIS RN STATED I WAS JUST TRYING TO HELP AND JUST WANTED TO MAKE SURE PT WAS OK, PT STATED, "I DONT GIVE A DAMN, IF I SAW YOU LAYING ON THE SIDE OF THE ROAD I WOULD JUST KEEP ON WALKING"
== END 2020-07-29 02:03 | disposition home or self-care (01) ==
LOC: ED 07-29 01:00
DX: L03.115 Cellulitis of right lower limb (principal); L03.116 Cellulitis of left lower limb; F17.200 Nicotine dependence, unspecified, uncomplicated; Z72.9 Problem related to lifestyle, unspecified
CPT/HCPCS: 36415; 80053; 85025; 99283

== ENCOUNTER 2020-07-30 14:06 | Emergency (ER) | payer MEDICAID ==
[~2020-07-30] VITALS: Ht 172.7 cm; Wt 68.3 kg
--- NOTE | 2020-07-30 14:29 | NUR ---
PT MOVED TO ROOM 25 DUE TO HYPOTENSION UPON TRIAGE. PT REFUSING TO REMOVE ANY CLOTHING AND ARGUING WITH STAFF WHEN ATTEMPTING TO EDUCATE ON THE NEED FOR A FULL ASSESSMENT.
[2020-07-30] MEDS ORDERED: SODIUM CHLORIDE 0.9% 1,000ML IVBOLUS ONE (14:30)
[2020-07-30] MEDS ORDERED: SODIUM CHLORIDE FLUSH 10ML SYR IVF ONE (14:30)
[2020-07-30 14:37] LABS: BASOPHILS % (AUTO) 1 % (0-1); EOSINOPHILS % (AUTO) 1 % (1-7); LYMPHOCYTES % (AUTO) 21 % (22-44); MEAN CORPUSCULAR HEMOGLOBIN 32.1 pg (27.5-34.5); MEAN CORPUSCULAR HGB CONC 33.9 g/dL (33.2-36.2); MEAN PLATELET VOLUME 7.4 fL (7.4-10.4); MONOCYTES % (AUTO) 14 % (2-9); NEUTROPHILS % (AUTO) 64 % (42-75); PLATELET COUNT 336 x10^3/uL (130-400); RED BLOOD COUNT 2.89 x10^6/uL (4.38-5.82); RED CELL DISTRIBUTION WIDTH 17.1 % (9.4-14.8)
[2020-07-30 14:40] LABS: ALBUMIN 2.2 g/dL (3.4-5.0); ANION GAP 6 mmol/L (5-15); CALCIUM 8.1 mg/dL (8.5-10.1); CHLORIDE 112 mmol/L (98-107); CREATININE 0.83 mg/dL (0.7-1.3); MD NO
--- NOTE | 2020-07-30 15:16 | NUR ---
PT UP TO RESTROOM. PT WALKS WITH STEADY BUT SLOW GAIT. VSS
[2020-07-30 16:22] VITALS: BP 113/63
--- NOTE | 2020-07-30 16:24 | NUR ---
TASK RN: PT SLEEPING ON GUKETTY MORRIS. FALL PRECAUTIONS IN PLACE.
--- NOTE | 2020-07-30 17:57 | NUR ---
at this time pt still refusing to undress for assessment. md is aware. pt resting in rney equal chest rise and fall
== END 2020-07-30 20:14 | disposition left against medical advice (07) ==
LOC: ED 15:07
DX: I95.9 Hypotension, unspecified (principal); G31.2 Degeneration of nervous system due to alcohol; Z72.9 Problem related to lifestyle, unspecified; F10.129 Alcohol abuse with intoxication, unspecified; Y90.0 Blood alcohol level of less than 20 mg/100 ml
CPT/HCPCS: 36415; 80048; 82040; 85025; 96360; 99283; J7030

== ENCOUNTER 2020-07-31 09:23 | Emergency (ER) | payer MEDICAID ==
[~2020-07-31] VITALS: Ht 175.3 cm; Wt 68.0 kg
[2020-07-31 09:25] VITALS: BP 91/47
--- NOTE | 2020-07-31 09:41 | NUR ---
SEE TRIAGE. PT ASSISTED IN REMOVING CLOTHES, GOWN ON. SOILED DRESSINGS FROM HIP TO TOES REMOVED. REDNESS AND MODERATE TO SEVERE EDEMA NOTED TO BLE, MULTIPLE WOUNDS. ALL OF PT'S CLOTHING SOILED WITH DIRT, URINE AND FECES. PT STATES [place], "[place] FOR M[place] OF LIFE". +ETOH, DRINKS BEER AND OTHER MALT LIQUOR THROUGHOUT DAY. BP AND PULSE OX IN PLACE, CALL LIGHT WITHIN REACH.
--- NOTE | 2020-07-31 10:20 | NUR ---
PER PA, PT LEAVING AMA. PT STATES HE DIDN'T WANT TO COME HERE. PT AMBULATORY IN [place], STEADY GAIT. ATTEMPT TO GIVE PT CLEAN CLOTHES, PT HAD ALREADY PUT SOILED CLOTHES BACK ON AND REFUSES CLOTHES OFFERED FROM DONATION CLOSET.
--- NOTE | 2020-07-31 10:40 | NUR ---
PT DISCHARGED WITH SCRIPTS, MED RESOURCES SHEET. PT ESCORTED OUT WITH SECURITY
== END 2020-07-31 10:42 | disposition left against medical advice (07) ==
LOC: ED 09:38
DX: L03.116 Cellulitis of left lower limb (principal); L03.115 Cellulitis of right lower limb; I10 Essential (primary) hypertension
CPT/HCPCS: 99283

== ENCOUNTER 2020-08-01 08:48 | Emergency (ER) | payer MEDICAID ==
[~2020-08-01] VITALS: Ht 170.2 cm; Wt 65.0 kg
[2020-08-01] MEDS ORDERED: THIAMINE 100 MG/ML, 2ML IM ONE (09:00)
[2020-08-01] MEDS ORDERED: THIAMINE 100MG TABLET ONE (09:14)
[2020-08-01] MEDS ORDERED: THIAMINE 100MG TABLET PO ONE (10:00)
[2020-08-01] MEDS ORDERED: SODIUM CHLORIDE 0.9% 1,000ML IVBOLUS ONE (10:00)
[2020-08-01 12:16] VITALS: BP 110/65
--- NOTE | 2020-08-01 12:22 | NUR ---
PT URINATING ON FLOOR, HOUSEKEEPING CALLED TO MOP. PT YELLING AND THREATENING THIS RN AND HOUSEKEEPING. PT STATES "FUCK YOU, I DARE YOU TO GET CLOSE TO ME". SECURITY CALLED TO BEDSIDE TO HELP ESCORT PT OUT.
== END 2020-08-01 12:30 | disposition home or self-care (01) ==
LOC: ED 10:19
DX: F10.129 Alcohol abuse with intoxication, unspecified (principal); Y90.0 Blood alcohol level of less than 20 mg/100 ml
CPT/HCPCS: 99283

== ENCOUNTER 2020-09-23 00:21 | Emergency (ER) | payer MEDICAID ==
[~2020-09-23] VITALS: Ht 175.3 cm; Wt 63.6 kg
[2020-09-23 00:56] LABS: BASOPHILS % (AUTO) 1 % (0-1); EOSINOPHILS % (AUTO) 1 % (1-7); LYMPHOCYTES % (AUTO) 18 % (22-44); MEAN CORPUSCULAR HEMOGLOBIN 28.6 pg (27.5-34.5); MEAN CORPUSCULAR HGB CONC 32.2 g/dL (33.2-36.2); MEAN PLATELET VOLUME 7.1 fL (7.4-10.4); MONOCYTES % (AUTO) 19 % (2-9); NEUTROPHILS % (AUTO) 61 % (42-75); PLATELET COUNT 184 x10^3/uL (130-400); RED BLOOD COUNT 2.72 x10^6/uL (4.38-5.82); RED CELL DISTRIBUTION WIDTH 17.6 % (9.4-14.8)
--- NOTE | 2020-09-23 01:04 | NUR ---
REPORT RECEIVED FROM RENETTA CABALLERO, PT CARE TRANSFERRED AT THIS TIME.
[2020-09-23 01:06] LABS: ALBUMIN 2.8 g/dL (3.4-5.0); ANION GAP 12 mmol/L (5-15); CALCIUM 8.2 mg/dL (8.5-10.1); CHLORIDE 110 mmol/L (98-107); CREATININE 2.28 mg/dL (0.7-1.3); SALICYLATE LEVEL < 1.7 mg/dL (2.8-20.0)
--- NOTE | 2020-09-23 01:34 | NUR ---
PT LAYING ON ESPERANZA, GIVEN URINAL FOR A URINE SAMPLE WHICH HE THREW OUT OF ER ROOM INTO HALLWAY YELLING AT NURSE "I DONT HAVE TO PEE OR WANT TO". PT REFUSED RAD AT THIS TIME STATING "GET THAT SHIT OUT OF MY ROOM". NAYA, ANIATM.
[2020-09-23 02:13] VITALS: BP 110/74
--- NOTE | 2020-09-23 02:14 | NUR ---
pt eloped from er at this time stating "i didnt want to come here, i dont need any of this shit." pt refused to sign ama form. ambulatory with a smooth and steady gait at this time.
== END 2020-09-23 02:16 | disposition left against medical advice (07) ==
LOC: ED 00:51
DX: F15.10 Other stimulant abuse, uncomplicated (principal); D64.9 Anemia, unspecified; N17.9 Acute kidney failure, unspecified; Z72.9 Problem related to lifestyle, unspecified; F17.290 Nicotine dependence, other tobacco product, uncomplicated
CPT/HCPCS: 36415; 80048; 80299; 80320; 80329; 82040; 85025; 99283; 99406; G0480

== ENCOUNTER 2020-09-24 01:18 | Inpatient (IN) | payer MEDICAID ==
[~2020-09-24] VITALS: Ht 175.3 cm; Wt 80.5 kg
[2020-09-24] MEDS ORDERED: PANTOPRAZOLE 40 MG IV IVPush ONE (01:30)
[2020-09-24] MEDS ORDERED: SODIUM CHLORIDE 0.9% 1,000ML IVBOLUS ONE (01:30)
[2020-09-24] MEDS ORDERED: ONDANSETRON 2MG/ML, 2ML IVPush ONE (01:30)
[2020-09-24] MEDS ORDERED: PANTOPRAZOLE 80 MG in SODIUM CHLORIDE 0.9% 100 ML IV SCH (01:30)
[2020-09-24] MEDS ORDERED: SODIUM CHLORIDE FLUSH 10ML SYR IVF ONE (01:30)
[2020-09-24] MEDS ORDERED: MAGNESIUM SULFATE 1 GM, THIAMINE 100 MG, FOLIC ACID 1 MG, MVI ADULT 10 ML in SODIUM CHL... IV ONE (01:30)
[2020-09-24] MEDS ORDERED: ONDANSETRON 2MG/ML, 2ML ONE (01:52)
[2020-09-24] MEDS ORDERED: PANTOPRAZOLE 40 MG IV ONE (01:52)
[2020-09-24 02:17] LABS: BASOPHILS % (AUTO) 1 % (0-1); EOSINOPHILS % (AUTO) 4 % (1-7); LYMPHOCYTES % (AUTO) 17 % (22-44); MEAN CORPUSCULAR HEMOGLOBIN 28.6 pg (27.5-34.5); MEAN CORPUSCULAR HGB CONC 31.8 g/dL (33.2-36.2); MEAN PLATELET VOLUME 7.4 fL (7.4-10.4); MONOCYTES % (AUTO) 17 % (2-9); NEUTROPHILS % (AUTO) 61 % (42-75); PLATELET COUNT 179 x10^3/uL (130-400); RED BLOOD COUNT 2.68 x10^6/uL (4.38-5.82); RED CELL DISTRIBUTION WIDTH 17.6 % (9.4-14.8)
[2020-09-24 02:21] LABS: ALANINE AMINOTRANSFERASE 35 U/L (12-78); ALBUMIN 2.4 g/dL (3.4-5.0); ANION GAP 8 mmol/L (5-15); CALCIUM 8.1 mg/dL (8.5-10.1); CHLORIDE 107 mmol/L (98-107); CREATININE 2.35 mg/dL (0.7-1.3)
[2020-09-24 02:23] LABS: ALKALINE PHOSPHATASE 109 U/L (45-117); TOTAL PROTEIN 6.5 g/dL (6.4-8.2)
[2020-09-24 02:57] LABS: INTERNATIONAL NORMALIZED RATIO 1.44 (0.93-1.1); PROTHROMBIN TIME 15.1 Seconds (9.6-11.5)
[2020-09-24] MEDS ORDERED: AZITHROMYCIN 500 MG in SODIUM CHLORIDE 0.9% 250 ML IV ONE (03:00)
[2020-09-24] MEDS ORDERED: OCTREOTIDE 500 MCG in SODIUM CHLORIDE 0.9% 99 ML IV PRN (03:00)
[2020-09-24] MEDS ORDERED: OCTREOTIDE 100MCG/ML, 1ML (0.1MG/ML) IV ONE (03:00)
[2020-09-24] MEDS ORDERED: CEFTRIAXONE 1,000 MG in DEXTROSE 5% 50 ML IVPB ONE (03:00)
[2020-09-24] MEDS ORDERED: POTASSIUM CHLORIDE 40 MEQ in SODIUM CHLORIDE 0.9% 500 ML IV ONE (04:00)
[2020-09-24] MEDS ORDERED: POTASSIUM CHLORIDE 40 MEQ, MVI ADULT 10 ML, FOLIC ACID 1 MG, MAGNESIUM SULFATE 1 GM in ... IV SCH ×2 (04:00→06:30)
[2020-09-24] MEDS ORDERED: morphine SULFATE 10 MG/ML, 1ML IVPush PRN (04:00)
[2020-09-24] MEDS ORDERED: GUAIFENESIN/DM 200-20MG, 10ML UDC PO PRN (04:00)
[2020-09-24] MEDS ORDERED: OCTREOTIDE 500 MCG in SODIUM CHLORIDE 0.9% 99 ML IV SCH (04:00)
[2020-09-24] MEDS: PANTOPRAZOLE 80 MG in SODIUM CHLORIDE 0.9% 100 ML IV SCH ×2 (04:00→09:00)
[2020-09-24] MEDS ORDERED: LORazepam 1MG TABLET PO PRN ×4 (04:00)
[2020-09-24] MEDS ORDERED: LABETALOL 5MG/ML, 20ML IVPush PRN (04:00)
[2020-09-24] MEDS ORDERED: DOCUSATE 100 MG CAPSULE PO PRN (04:00)
[2020-09-24] MEDS ORDERED: LORazepam 2 MG/ML, 1ML IV PRN ×5 (04:00)
[2020-09-24] MEDS ORDERED: LORazepam 0.5MG TABLET PO PRN (04:00)
--- NOTE | 2020-09-24 04:37 | NUR ---
[facility] with complaints of coffee-ground emesis. Patient lethargic upon arrival.
--- NOTE | 2020-09-24 04:38 | NUR ---
patient has slight nose bleeding. Kath LOZNAO notified and instructed to place clamp on patients nose
[2020-09-24 06:34] VITALS: BP 98/56
[2020-09-24 07:33] VITALS: BP 100/49
[2020-09-24] MEDS: POTASSIUM CHLORIDE 40 MEQ, MVI ADULT 10 ML, FOLIC ACID 1 MG, MAGNESIUM SULFATE 1 GM in ... IV SCH (09:56)
[2020-09-24] MEDS: SUCRALFATE 1 GM/10 ML UDC PO SCH ×3 (11:27→21:24)
[2020-09-24 13:04] VITALS: BP 101/60
[2020-09-24 14:54] VITALS: BP 98/56
[2020-09-24] MEDS: OMEPRAZOLE 20 MG CAPSULE.DR PO SCH (17:01)
[2020-09-24 21:28] VITALS: BP 104/61
[2020-09-25] VITALS (11 sets, daily range): BP systolic 102–133; BP diastolic 57–76
[2020-09-25 02:22] LABS: MEAN CORPUSCULAR HEMOGLOBIN 28.7 pg (27.5-34.5); MEAN CORPUSCULAR HGB CONC 31.9 g/dL (33.2-36.2); MEAN PLATELET VOLUME 7.2 fL (7.4-10.4); PLATELET COUNT 144 x10^3/uL (130-400); RED BLOOD COUNT 2.48 x10^6/uL (4.38-5.82); RED CELL DISTRIBUTION WIDTH 17.5 % (9.4-14.8)
[2020-09-25 02:30] LABS: ANION GAP 5 mmol/L (5-15); CALCIUM 7.5 mg/dL (8.5-10.1); CHLORIDE 114 mmol/L (98-107); CREATININE 1.76 mg/dL (0.7-1.3)
[2020-09-25 02:45] LABS: BASOS#(MANUAL) 0.07 x10^3/uL (0-0.1); BASOS% (MANUAL) 3 % (0-1); EOS#(MANUAL) 0.07 x10^3/uL (0.0-0.4); EOS% (MANUAL) 3 % (1-7); LYMPH#(MANUAL) 0.48 x10^3/uL (1-3.4); LYMPHS% (MANUAL) 22 % (22-44); MONOS#(MANUAL) 0.15 x10^3/uL (0.3-2.7); MONOS% (MANUAL) 7 % (2-9); SEG#(MANUAL) 1.43 x10^3/uL (1.8-6.8); SEGS% (MANUAL) 65 % (42-75)
[2020-09-25 02:47] LABS: ANISOCYTOSIS 1+; HYPOCHROMIA 1+; OVALOCYTES 1+
[2020-09-25 02:48] LABS: <PLATELET ESTIMATE> ADEQUATE
[2020-09-25 02:49] LABS: SMALL PLATELETS 1+
[2020-09-25] MEDS: CEFTRIAXONE 2 GM in DEXTROSE 5% 50 ML IVPB SCH (03:26)
[2020-09-25] MEDS: OMEPRAZOLE 20 MG CAPSULE.DR PO SCH ×2 (05:25→16:58)
[2020-09-25] MEDS: SUCRALFATE 1 GM/10 ML UDC PO SCH ×4 (07:57→21:45)
[2020-09-25] MEDS ORDERED: SODIUM CHLORIDE 0.9% 250 ML IV ONE (08:00)
[2020-09-25] MEDS ORDERED: SODIUM CHLORIDE 0.9%, 500ML IVBOLUS ONE (09:00)
[2020-09-25] MEDS ORDERED: CHLORDIAZEPOXIDE 10 MG CAPSULE PO SCH (11:00)
[2020-09-25] MEDS: PHYTONADIONE 5 MG TABLET PO SCH (11:34)
[2020-09-25] MEDS: ACETAMINOPHEN 325 MG TABLET PO PRN (13:51)
[2020-09-25] MEDS: THIAMINE 100 MG in DEXTROSE 5% 50 ML IVPB SCH (13:53)
[2020-09-25] MEDS: POTASSIUM CHLORIDE 40 MEQ, MVI ADULT 10 ML, FOLIC ACID 1 MG, MAGNESIUM SULFATE 1 GM in ... IV SCH (13:53)
[2020-09-26 00:22] VITALS: BP 114/69
[2020-09-26] MEDS: CEFTRIAXONE 2 GM in DEXTROSE 5% 50 ML IVPB SCH (03:01)
[2020-09-26 05:50] LABS: BASOPHILS % (AUTO) 1 % (0-1); EOSINOPHILS % (AUTO) 8 % (1-7); LYMPHOCYTES % (AUTO) 21 % (22-44); MEAN CORPUSCULAR HEMOGLOBIN 28.8 pg (27.5-34.5); MEAN CORPUSCULAR HGB CONC 31.8 g/dL (33.2-36.2); MEAN PLATELET VOLUME 7.4 fL (7.4-10.4); MONOCYTES % (AUTO) 18 % (2-9); NEUTROPHILS % (AUTO) 52 % (42-75); PLATELET COUNT 142 x10^3/uL (130-400); RED BLOOD COUNT 3.07 x10^6/uL (4.38-5.82); RED CELL DISTRIBUTION WIDTH 18.2 % (9.4-14.8)
[2020-09-26 05:57] LABS: CALCIUM 7.5 mg/dL (8.5-10.1)
[2020-09-26 06:01] LABS: CREATININE 1.79 mg/dL (0.7-1.3)
[2020-09-26] MEDS: OMEPRAZOLE 20 MG CAPSULE.DR PO SCH ×2 (06:07→17:38)
[2020-09-26] MEDS: SUCRALFATE 1 GM/10 ML UDC PO SCH ×4 (06:07→20:19)
[2020-09-26 06:15] LABS: ANION GAP 3 mmol/L (5-15); CHLORIDE 115 mmol/L (98-107)
[2020-09-26 06:38] VITALS: BP 125/68
[2020-09-26] MEDS: THIAMINE 100 MG in DEXTROSE 5% 50 ML IVPB SCH (09:16)
[2020-09-26] MEDS: PHYTONADIONE 5 MG TABLET PO SCH (09:16)
[2020-09-26 12:52] VITALS: BP 121/72
[2020-09-26] MEDS: SODIUM CHLORIDE 0.9% 1,000 ML IV SCH (13:05)
[2020-09-26] MEDS: LORazepam 2 MG/ML, 1ML IVPush PRN (14:19)
[2020-09-26 20:21] VITALS: BP 110/65
[2020-09-26 21:00] VITALS: BP 152/70
[2020-09-26] MEDS: ONDANSETRON 2MG/ML, 2ML IVPush PRN (21:17)
[2020-09-26] MEDS: ACETAMINOPHEN 325 MG TABLET PO PRN (22:49)
[2020-09-27 01:18] VITALS: BP 124/65
[2020-09-27] MEDS: SODIUM CHLORIDE 0.9% 1,000 ML IV SCH ×2 (02:24→15:40)
[2020-09-27] MEDS: CEFTRIAXONE 2 GM in DEXTROSE 5% 50 ML IVPB SCH (03:24)
[2020-09-27 05:20] LABS: BASOPHILS % (AUTO) 1 % (0-1); EOSINOPHILS % (AUTO) 6 % (1-7); LYMPHOCYTES % (AUTO) 21 % (22-44); MEAN CORPUSCULAR HGB CONC 32.3 g/dL (33.2-36.2); MEAN PLATELET VOLUME 7.4 fL (7.4-10.4); MONOCYTES % (AUTO) 16 % (2-9); NEUTROPHILS % (AUTO) 56 % (42-75); PLATELET COUNT 129 x10^3/uL (130-400); RED BLOOD COUNT 3.17 x10^6/uL (4.38-5.82); RED CELL DISTRIBUTION WIDTH 17.9 % (9.4-14.8)
[2020-09-27 05:32] LABS: CHLORIDE 115 mmol/L (98-107)
[2020-09-27 05:36] LABS: ANION GAP 3 mmol/L (5-15); CALCIUM 7.7 mg/dL (8.5-10.1); CREATININE 2.24 mg/dL (0.7-1.3)
[2020-09-27] MEDS: OMEPRAZOLE 20 MG CAPSULE.DR PO SCH ×2 (05:51→15:40)
[2020-09-27] MEDS: SUCRALFATE 1 GM/10 ML UDC PO SCH ×5 (07:00→21:11)
[2020-09-27 08:36] VITALS: BP 150/87
[2020-09-27] MEDS: PHYTONADIONE 5 MG TABLET PO SCH ×2 (08:45→08:56)
[2020-09-27] MEDS: ONDANSETRON 2MG/ML, 2ML IVPush PRN (09:01)
[2020-09-27] MEDS: ACETAMINOPHEN 325 MG TABLET PO PRN (10:12)
[2020-09-27 10:15] VITALS: BP 139/85
[2020-09-27] MEDS: THIAMINE 100 MG in DEXTROSE 5% 50 ML IVPB SCH (10:47)
[2020-09-27 12:49] LABS: CHLORIDE,URINE RANDOM 77 mmol/L; POTASSIUM,URINE RANDOM 28 mmol/L; SODIUM,URINE RANDOM 51 mmol/L
[2020-09-27 13:29] VITALS: BP 138/73
[2020-09-27] MEDS: LACTULOSE 20 GM/30 ML UDC PO SCH ×2 (15:40→21:11)
[2020-09-27 20:53] VITALS: BP 148/71
[2020-09-27] MEDS: LORazepam 2 MG/ML, 1ML IVPush PRN (21:11)
[2020-09-28 01:06] VITALS: BP 145/59
[2020-09-28] MEDS: CEFTRIAXONE 2 GM in DEXTROSE 5% 50 ML IVPB SCH (03:30)
[2020-09-28 04:56] LABS: BASOPHILS % (AUTO) 1 % (0-1); EOSINOPHILS % (AUTO) 9 % (1-7); LYMPHOCYTES % (AUTO) 26 % (22-44); MEAN CORPUSCULAR HEMOGLOBIN 28.8 pg (27.5-34.5); MEAN CORPUSCULAR HGB CONC 31.6 g/dL (33.2-36.2); MEAN PLATELET VOLUME 7.6 fL (7.4-10.4); MONOCYTES % (AUTO) 15 % (2-9); NEUTROPHILS % (AUTO) 49 % (42-75); PLATELET COUNT 133 x10^3/uL (130-400); RED BLOOD COUNT 3.08 x10^6/uL (4.38-5.82)
[2020-09-28 05:05] LABS: ALANINE AMINOTRANSFERASE 27 U/L (12-78); ALBUMIN 1.9 g/dL (3.4-5.0); ANION GAP 2 mmol/L (5-15); CALCIUM 7.6 mg/dL (8.5-10.1); CHLORIDE 117 mmol/L (98-107); CREATININE 2.91 mg/dL (0.7-1.3)
[2020-09-28 05:07] LABS: ALKALINE PHOSPHATASE 73 U/L (45-117); BILIRUBIN,TOTAL 0.4 mg/dL (0.2-1.0); TOTAL PROTEIN 5.9 g/dL (6.4-8.2)
[2020-09-28] MEDS: SODIUM CHLORIDE 0.9% 1,000 ML IV SCH ×2 (06:08→23:00)
[2020-09-28] MEDS: OMEPRAZOLE 20 MG CAPSULE.DR PO SCH ×2 (06:08→17:14)
[2020-09-28] MEDS: SUCRALFATE 1 GM/10 ML UDC PO SCH ×4 (08:43→20:00)
[2020-09-28] MEDS: LACTULOSE 20 GM/30 ML UDC PO SCH ×3 (08:43→20:00)
[2020-09-28 09:22] VITALS: BP 132/78
[2020-09-28] MEDS: THIAMINE 100 MG in DEXTROSE 5% 50 ML IVPB SCH (11:19)
[2020-09-28 12:32] VITALS: BP 155/81
[2020-09-28 17:43] LABS: MICROSCOPIC INDICATED
[2020-09-28] MEDS: LORazepam 2 MG/ML, 1ML IVPush PRN (20:00)
[2020-09-28 21:05] VITALS: BP 174/76
[2020-09-29 00:09] VITALS: BP 137/74
[2020-09-29] MEDS: CEFTRIAXONE 2 GM in DEXTROSE 5% 50 ML IVPB SCH (03:24)
[2020-09-29] MEDS: LORazepam 2 MG/ML, 1ML IVPush PRN (04:47)
[2020-09-29] MEDS: OMEPRAZOLE 20 MG CAPSULE.DR PO SCH ×2 (05:19→16:58)
[2020-09-29 06:28] LABS: ALBUMIN 1.9 g/dL (3.4-5.0); ANION GAP 5 mmol/L (5-15); CALCIUM 8.1 mg/dL (8.5-10.1); CHLORIDE 118 mmol/L (98-107)
[2020-09-29 06:33] LABS: % IRON SATURATION 10 % (20-55); ALANINE AMINOTRANSFERASE 30 U/L (12-78); ALKALINE PHOSPHATASE 76 U/L (45-117); BILIRUBIN,TOTAL 0.4 mg/dL (0.2-1.0); CREATININE 3.44 mg/dL (0.7-1.3); IRON LEVEL 33 mcg/dL (65-175); TOTAL IRON BINDING CAPACITY 347 mcg/dL (250-450); TOTAL PROTEIN 6.4 g/dL (6.4-8.2)
[2020-09-29 07:40] VITALS: BP 126/72
[2020-09-29] MEDS: SUCRALFATE 1 GM/10 ML UDC PO SCH ×4 (07:50→21:00)
[2020-09-29] MEDS: LACTULOSE 20 GM/30 ML UDC PO SCH ×3 (09:36→21:00)
[2020-09-29] MEDS: THIAMINE 100 MG in DEXTROSE 5% 50 ML IVPB SCH (09:36)
[2020-09-29 12:25] VITALS: BP 139/68
[2020-09-29] MEDS: IRON SUCROSE COMPLEX 100MG/5ML IV SCH (13:33)
[2020-09-29] MEDS: SODIUM CHLORIDE 0.9% 1,000 ML IV SCH (13:48)
[2020-09-29 17:21] LABS: CHLORIDE,URINE RANDOM 69 mmol/L; POTASSIUM,URINE RANDOM 32 mmol/L; SODIUM,URINE RANDOM 48 mmol/L
[2020-09-29 18:30] LABS: MICROSCOPIC INDICATED
[2020-09-29 19:50] VITALS: BP 157/73
[2020-09-30 00:01] VITALS: BP 129/77
[2020-09-30] MEDS: SODIUM CHLORIDE 0.9% 1,000 ML IV SCH ×2 (03:03→20:32)
[2020-09-30] MEDS: CEFTRIAXONE 2 GM in DEXTROSE 5% 50 ML IVPB SCH (03:03)
[2020-09-30 05:34] LABS: BASOPHILS % (AUTO) 1 % (0-1); EOSINOPHILS % (AUTO) 5 % (1-7); LYMPHOCYTES % (AUTO) 25 % (22-44); MEAN CORPUSCULAR HEMOGLOBIN 28.3 pg (27.5-34.5); MEAN CORPUSCULAR HGB CONC 31.5 g/dL (33.2-36.2); MEAN PLATELET VOLUME 7.4 fL (7.4-10.4); MONOCYTES % (AUTO) 19 % (2-9); NEUTROPHILS % (AUTO) 51 % (42-75); PLATELET COUNT 136 x10^3/uL (130-400); RED BLOOD COUNT 3.05 x10^6/uL (4.38-5.82); RED CELL DISTRIBUTION WIDTH 17.7 % (9.4-14.8)
[2020-09-30 05:42] VITALS: BP 108/73
[2020-09-30] MEDS: OMEPRAZOLE 20 MG CAPSULE.DR PO SCH ×2 (06:11→16:07)
[2020-09-30 06:34] LABS: ALANINE AMINOTRANSFERASE 28 U/L (12-78); ALBUMIN 1.8 g/dL (3.4-5.0); ANION GAP 5 mmol/L (5-15); CALCIUM 8.1 mg/dL (8.5-10.1); CHLORIDE 120 mmol/L (98-107); CREATININE 3.89 mg/dL (0.7-1.3)
[2020-09-30 06:37] LABS: ALKALINE PHOSPHATASE 72 U/L (45-117); BILIRUBIN,TOTAL 0.4 mg/dL (0.2-1.0); CREATINE KINASE, TOTAL 51 U/L (39-308); TOTAL PROTEIN 6.1 g/dL (6.4-8.2)
[2020-09-30 07:59] VITALS: BP 157/64
[2020-09-30] MEDS: SUCRALFATE 1 GM/10 ML UDC PO SCH ×4 (08:09→20:32)
[2020-09-30] MEDS: LACTULOSE 20 GM/30 ML UDC PO SCH ×3 (10:38→20:32)
[2020-09-30] MEDS: MULTIVITAMINS/MINERALS TABLET PO SCH ×2 (10:41→20:32)
[2020-09-30] MEDS ORDERED: IRON SUCROSE COMPLEX 100MG/5ML IV SCH (11:00)
[2020-09-30] MEDS: IRON SUCROSE COMPLEX 100MG/5ML IV SCH (12:36)
[2020-09-30 14:41] VITALS: BP 160/77
[2020-09-30 19:07] VITALS: BP 172/66
[2020-10-01 00:01] VITALS: BP 133/60
[2020-10-01] MEDS: CEFTRIAXONE 2 GM in DEXTROSE 5% 50 ML IVPB SCH (02:55)
[2020-10-01 05:41] LABS: BASOPHILS % (AUTO) 1 % (0-1); EOSINOPHILS % (AUTO) 6 % (1-7); LYMPHOCYTES % (AUTO) 23 % (22-44); MEAN CORPUSCULAR HEMOGLOBIN 28.3 pg (27.5-34.5); MEAN CORPUSCULAR HGB CONC 31.1 g/dL (33.2-36.2); MONOCYTES % (AUTO) 18 % (2-9); NEUTROPHILS % (AUTO) 53 % (42-75); PLATELET COUNT 131 x10^3/uL (130-400); RED BLOOD COUNT 3.34 x10^6/uL (4.38-5.82)
[2020-10-01 05:54] LABS: ALBUMIN 2.1 g/dL (3.4-5.0); ANION GAP 2 mmol/L (5-15); CALCIUM 8.5 mg/dL (8.5-10.1); CHLORIDE 121 mmol/L (98-107); CREATININE 4.07 mg/dL (0.7-1.3)
[2020-10-01] MEDS: OMEPRAZOLE 20 MG CAPSULE.DR PO SCH ×2 (07:17→16:28)
[2020-10-01] MEDS: SUCRALFATE 1 GM/10 ML UDC PO SCH ×5 (07:17→21:08)
[2020-10-01 08:01] VITALS: BP 141/69
[2020-10-01] MEDS: MULTIVITAMINS/MINERALS TABLET PO SCH ×2 (08:29→21:09)
[2020-10-01] MEDS: LACTULOSE 20 GM/30 ML UDC PO SCH ×3 (08:29→21:08)
[2020-10-01] MEDS: SODIUM CHLORIDE 0.9% 1,000 ML IV SCH (09:18)
[2020-10-01 12:53] VITALS: BP 160/78
[2020-10-01] MEDS: IRON SUCROSE COMPLEX 100MG/5ML IV SCH (13:23)
[2020-10-01] MEDS: ONDANSETRON 2MG/ML, 2ML IVPush PRN (13:36)
[2020-10-01] MEDS: FUROSEMIDE 40 MG/4 ML IV SCH ×2 (15:17→18:30)
[2020-10-01 19:46] VITALS: BP 151/73
[2020-10-02] MEDS: LORazepam 2 MG/ML, 1ML IVPush PRN (00:18)
[2020-10-02 01:25] VITALS: BP 142/84
[2020-10-02] MEDS: CEFTRIAXONE 2 GM in DEXTROSE 5% 50 ML IVPB SCH (02:53)
[2020-10-02] MEDS: OMEPRAZOLE 20 MG CAPSULE.DR PO SCH ×2 (05:18→16:04)
[2020-10-02 07:35] LABS: BASOPHILS % (AUTO) 1 % (0-1); EOSINOPHILS % (AUTO) 5 % (1-7); LYMPHOCYTES % (AUTO) 22 % (22-44); MEAN CORPUSCULAR HEMOGLOBIN 28.2 pg (27.5-34.5); MEAN CORPUSCULAR HGB CONC 30.9 g/dL (33.2-36.2); MEAN PLATELET VOLUME 7.3 fL (7.4-10.4); MONOCYTES % (AUTO) 17 % (2-9); NEUTROPHILS % (AUTO) 56 % (42-75); PLATELET COUNT 146 x10^3/uL (130-400); RED BLOOD COUNT 3.24 x10^6/uL (4.38-5.82); RED CELL DISTRIBUTION WIDTH 18.1 % (9.4-14.8)
[2020-10-02 07:41] LABS: ALBUMIN 1.9 g/dL (3.4-5.0); ANION GAP 3 mmol/L (5-15); CALCIUM 8.4 mg/dL (8.5-10.1); CHLORIDE 121 mmol/L (98-107); CREATININE 4.54 mg/dL (0.7-1.3)
[2020-10-02] MEDS ORDERED: FUROSEMIDE 100 MG/10 ML IV ONE (08:00)
[2020-10-02 08:13] VITALS: BP 124/69
[2020-10-02] MEDS: SUCRALFATE 1 GM/10 ML UDC PO SCH ×4 (10:27→21:00)
[2020-10-02] MEDS: LACTULOSE 20 GM/30 ML UDC PO SCH ×3 (10:28→21:00)
[2020-10-02] MEDS: MULTIVITAMINS/MINERALS TABLET PO SCH ×2 (10:28→21:00)
[2020-10-02] MEDS: IRON SUCROSE COMPLEX 100MG/5ML IV SCH (12:36)
[2020-10-02 14:15] VITALS: BP 137/70
[2020-10-02 18:14] VITALS: BP 150/72
[2020-10-03 00:02] VITALS: BP 167/76
[2020-10-03] MEDS: CEFTRIAXONE 2 GM in DEXTROSE 5% 50 ML IVPB SCH (03:40)
[2020-10-03 06:25] LABS: BASOPHILS % (AUTO) 1 % (0-1); EOSINOPHILS % (AUTO) 6 % (1-7); LYMPHOCYTES % (AUTO) 21 % (22-44); MEAN CORPUSCULAR HEMOGLOBIN 28.4 pg (27.5-34.5); MEAN CORPUSCULAR HGB CONC 31.2 g/dL (33.2-36.2); MEAN PLATELET VOLUME 8.1 fL (7.4-10.4); MONOCYTES % (AUTO) 16 % (2-9); NEUTROPHILS % (AUTO) 57 % (42-75); RED BLOOD COUNT 3.34 x10^6/uL (4.38-5.82); RED CELL DISTRIBUTION WIDTH 18.3 % (9.4-14.8)
[2020-10-03] MEDS: OMEPRAZOLE 20 MG CAPSULE.DR PO SCH ×3 (06:26→18:59)
[2020-10-03 06:29] LABS: CALCIUM 8.4 mg/dL (8.5-10.1); CHLORIDE 119 mmol/L (98-107)
[2020-10-03 06:33] LABS: ANION GAP 5 mmol/L (5-15); CREATININE 4.81 mg/dL (0.7-1.3)
[2020-10-03 06:57] LABS: PLATELET COUNT 115 x10^3/uL (130-400)
[2020-10-03 07:00] LABS: <PLATELET ESTIMATE> DECREASED; <PLT MORPHOLOGY> NORMAL PLT MORPH; ANISOCYTOSIS 1+; HYPOCHROMIA 1+; OVALOCYTES 1+
[2020-10-03] MEDS: MULTIVITAMINS/MINERALS TABLET PO SCH ×2 (07:24→18:59)
[2020-10-03] MEDS: SUCRALFATE 1 GM/10 ML UDC PO SCH ×5 (07:24→18:59)
[2020-10-03] MEDS: LACTULOSE 20 GM/30 ML UDC PO SCH ×3 (09:30→18:59)
[2020-10-03 09:36] VITALS: BP 164/66
[2020-10-03] MEDS ORDERED: BISACODYL 5 MG EC TABLET PO PRN (11:00)
[2020-10-03] MEDS ORDERED: ONDANSETRON 2MG/ML, 2ML IVPush PRN (11:00)
[2020-10-03] MEDS ORDERED: MORPHINE SULFATE 4 MG/ML, 1ML IVPush PRN (11:00)
[2020-10-03] MEDS: IRON SUCROSE COMPLEX 100MG/5ML IV SCH (11:03)
[2020-10-03 15:59] VITALS: BP 159/72
[2020-10-03] MEDS ORDERED: morphine SULFATE ORAL.CONC 20 MG/ML PO PRN (16:30)
[2020-10-03] MEDS ORDERED: ONDANSETRON ODT 4 MG PO PRN (18:00)
[2020-10-03 18:41] VITALS: BP 146/62
[2020-10-03] MEDS: SODIUM CHLORIDE FLUSH 10ML SYR IVF SCH (18:58)
[2020-10-03] MEDS: MORPHINE SULFATE 4 MG/ML, 1ML IVPush PRN (19:57)
[2020-10-04] MEDS: MORPHINE SULFATE 4 MG/ML, 1ML IVPush PRN (03:20)
[2020-10-04 07:55] VITALS: BP 141/69
[2020-10-04] MEDS: LACTULOSE 20 GM/30 ML UDC PO SCH (08:11)
[2020-10-04] MEDS: MULTIVITAMINS/MINERALS TABLET PO SCH (08:17)
[2020-10-04] MEDS: SODIUM CHLORIDE FLUSH 10ML SYR IVF SCH ×2 (09:00→22:09)
[2020-10-04] MEDS: SUCRALFATE 1 GM/10 ML UDC PO SCH (11:12)
[2020-10-04] MEDS ORDERED: HALOPERIDOL 5 MG/ML IM ONE (11:30)
[2020-10-04] MEDS ORDERED: LORazepam 2 MG/ML, 1ML IM ONE (11:30)
[2020-10-04] MEDS ORDERED: DIPHENHYDRAMINE 50 MG/ML, 1ML IM ONE (11:30)
[2020-10-04] MEDS: MORPHINE 30MG/30ML PCA.SYR IV PRN (13:47)
[2020-10-04] MEDS: LORazepam 2 MG/ML, 1ML IVPush PRN ×2 (16:36→18:31)
[2020-10-04 17:55] LABS: ANA SCREEN NEGATIVE (Negative)
[2020-10-05] MEDS: SODIUM CHLORIDE FLUSH 10ML SYR IVF SCH ×2 (09:00→22:30)
[2020-10-05] MEDS: MORPHINE 30MG/30ML PCA.SYR IV PRN (09:30)
[2020-10-05] MEDS: LORazepam 2 MG/ML, 1ML IVPush PRN (14:48)
[2020-10-06] MEDS: ATROPINE OPHTH SOLN 1%, 2ML BC PRN ×4 (00:34→06:23)
[2020-10-06] MEDS: MORPHINE 30MG/30ML PCA.SYR IV PRN (04:37)
[2020-10-06] MEDS: SODIUM CHLORIDE FLUSH 10ML SYR IVF SCH (09:00)
[2020-10-06] MEDS: LORazepam 2 MG/ML, 1ML IVPush PRN (10:21)
== END 2020-10-06 15:44 | DRG 720 ==
LOC: ED 01:37 → EDIP 03:23 → 5SO 06:18 → 3N 09-26 20:57 → 4NW 10-04 11:45 → 4NE 10-04 17:14
PROVIDERS: ADMIT Internal Medicine; ATTEND Internal Medicine
PROC: 0T9B70Z Drainage of Bladder with Drainage Device, Via Natural or Artificial Opening (ICD-10-PCS; principal; 2020-09-24)
PROC: 30233N1 Transfusion of Nonautologous Red Blood Cells into Peripheral Vein, Percutaneous Approach (ICD-10-PCS; 2020-09-25)
DX: A41.9 Sepsis, unspecified organism (principal); J96.01 Acute respiratory failure with hypoxia; N17.0 Acute kidney failure with tubular necrosis; J15.9 Unspecified bacterial pneumonia; K29.21 Alcoholic gastritis with bleeding; R18.8 Other ascites; D62 Acute posthemorrhagic anemia; E83.39 Other disorders of phosphorus metabolism; N18.6 End stage renal disease; D68.9 Coagulation defect, unspecified; R64 Cachexia; Z20.822 Contact with and (suspected) exposure to COVID-19; Z51.5 Encounter for palliative care; Z66 Do not resuscitate; K74.60 Unspecified cirrhosis of liver; E88.09 Other disorders of plasma-protein metabolism, not elsewhere classified; R65.20 Severe sepsis without septic shock; F15.10 Other stimulant abuse, uncomplicated; F17.210 Nicotine dependence, cigarettes, uncomplicated; F43.10 Post-traumatic stress disorder, unspecified; E87.6 Hypokalemia; I35.0 Nonrheumatic aortic (valve) stenosis; E83.51 Hypocalcemia; F10.139 Alcohol abuse with withdrawal, unspecified; K72.90 Hepatic failure, unspecified without coma; Z68.26 Body mass index [BMI] 26.0-26.9, adult; Z59.0 Homelessness; Z86.79 Personal history of other diseases of the circulatory system; Z79.899 Other long term (current) drug therapy
CPT/HCPCS: 36415; 84145; 84155; 87806; 96374; 96375; 99291; J7042; 71045; 74176; 76770; 80048; 80053; 80069; 80320; 80321; 81001; 82140; 82306; 82330; 82436; 82550; 82570; 82595; 82728; 83540; 83550; 83605; 83690; 83735; 83883; 83970; 84100; 84133; 84153; 84156; 84165; 84300; 84550; 85018; 85025; 85610; 85730; 86038; 86160; 86162; 86850; 86900; 86923; 87040; 87086; 87522; 93005; G0378; J0456; J0696; J1756; J1940; J2270; J2354; J2405; J3411; J3475; J3480; U0005; C9113; G0103; G0475; G0480; J1200; J1630; J2060; J7030; J7040; J7050; P9016; U0003